=== PATIENT | female | born 1995 | race American Indian/Alaskan Native ===

== ENCOUNTER 2016-09-08 14:07 | Emergency (ER) | payer SELFPAY ==
[2016-09-08 14:44] VITALS: BP 117/84
[2016-09-08] MEDS ORDERED: ZOFRAN IV ONE (14:51)
[2016-09-08] MEDS ORDERED: TORADOL IV ONE (14:51)
[2016-09-08] MEDS ORDERED: NACL 0.9% 1000 ML 1,000 ML IV ONE (14:51)
--- NOTE | 2016-09-08 14:54 | Emergency Department Report ---
Entered by SANDRINE RIOS, acting as scribe for TAMMI ZAPIEN NP. Chief Complaint: Nausea/Vomiting/Diarrhea Stated Complaint: EMESIS/ SINCE EARLY THIS MORNING Time Seen by Provider: 09/08/16 14:46 - HPI History of Present Illness: Pt states she might have the stomach virus from eating fried food last night at 23:00. Reports nausea and vomiting. Notes vomiting started this morning at 02:00 , and last episode 15 minutes ago + abdominal pain and low back pain - vaginal bleeding and dysuria Pt states there is a chance she could be LMP 08/25/2016 Notes she uses tobacco products - ROS Review of Systems: All system are negative unless stated in HPI above. - Exam Vital Signs: Vital Signs 09/08/16 14:41 Temperature 98.5 F Pulse Rate 72 Respiratory 16 Rate Blood Pressure 117/84 O2 Sat by Pulse 100 Oximetry Physical Exam: General: well nourished, well developed, 21 year old female in no acute distress and nontoxic in appearance Back: bilateral CVA tenderness Abdominal: soft, non-distended. Suprapubic tenderness present. MSE screening note: Focused history and physical exam performed. Due to findings the following was ordered: See above ED Medical Decision Making - Medical Decision Making Patient screened by provider in triage area. Labs sent in for patient. Patient sent to be seen by MD on main ED side. ED Disposition for MSE Condition: Stable This documentation as recorded by the scribe,SANDRINE RIOS,accurately reflects the service I personally performed and the decisions made by me, TAMMI ZAPIEN NP.
[2016-09-08 15:15] LABS: Basophils % (Auto) 0.1 % (0.0-1.8); Hematocrit 38.8 % (30.3-42.9); Hemoglobin 12.7 gm/dl (10.1-14.3); Mean Corpuscular HGB Conc 33 % (30-34); Mean Corpuscular Hemoglobin 30 pg (28-32); Mean Corpuscular Volume 93 fl (79-97); Platelet Count 277 K/mm3 (140-440); Red Blood Count 4.18 M/mm3 (3.65-5.03); Red Cell Distribution Width 13.9 % (13.2-15.2); White Blood Count 14.5 K/mm3 (4.5-11.0)
[2016-09-08 15:34] LABS: Alanine Aminotransferase 10 units/L (7-56); Albumin 4.8 g/dL (3.9-5); Albumin/Globulin Ratio 1.5 %; Alkaline Phosphatase 57 units/L (35-129); Anion Gap 25 mmol/L; BUN/Creatinine Ratio 13.33; Blood Urea Nitrogen 8 mg/dL (7-17); Calcium 9.8 mg/dL (8.4-10.2); Carbon Dioxide 24 mmol/L (22-30); Chloride 98.1 mmol/L (98-107); Glucose 134 mg/dL (65-100); Lipase 15 units/L (13-60); Potassium 4.1 mmol/L (3.6-5.0); Sodium 143 mmol/L (137-145); Total Protein 8.1 g/dL (6.3-8.2)
--- NOTE | 2016-09-12 01:08 | ED Elopement Review ---
ED Pt Elopement review - Results review Lab results: Laboratory Tests 09/08/16 09/08/16 15:01 15:01 WBC 14.5 H RBC 4.18 Hgb 12.7 Hct 38.8 MCV 93 MCH 30 MCHC 33 RDW 13.9 Plt Count 277 Lymph % (Auto) 8.7 L Bullock % (Auto) 2.6 Eos % (Auto) 0.0 Baso % (Auto) 0.1 Lymph # 1.3 Bullock # 0.4 Eos # 0.0 Baso # 0.0 Seg Neutrophils % 88.6 H Seg Neutrophils # 12.8 H Sodium 143 Potassium 4.1 Chloride 98.1 Carbon Dioxide 24 Anion Gap 25 BUN 8 Creatinine 0.6 L Estimated GFR > 60 BUN/Creatinine Ratio 13.33 Glucose 134 H Calcium 9.8 Total Bilirubin 0.70 AST 19 ALT 10 Alkaline Phosphatase 57 Total Protein 8.1 Albumin 4.8 Albumin/Globulin Ratio 1.5 Lipase 15 - Call Back decision Pt Call Back Decision: Pt to F/U with PMD
== END 2016-09-08 22:45 | disposition left against medical advice (07) ==
LOC: ED 14:07
DX: R11.11 Vomiting without nausea (principal); Z53.21 Procedure and treatment not carried out due to patient leaving prior to being seen by health care provider
CPT/HCPCS: 36415; 80053; 83690; 85025